=== PATIENT | female | born 2000 | race Caucasian/White ===

== ENCOUNTER 2022-03-16 16:23 | Emergency (ER) | payer OTHER, SELFPAY ==
--- NOTE | 2022-03-16 16:24 | ED.URI ---
HPI - URI/Sore Throat General Chief Complaint: Upper Respiratory Infection Stated Complaint: SORE THROAT/COUGH/CONGESTION Time Seen by Provider: 03/16/22 16:23 Source: patient Mode of arrival: ambulatory Limitations: no limitations History of Present Illness HPI Narrative: Dian is a 22-year-old female patient presenting to the clinic today with complaints of sore throat, cough, and congestion times x 1 week She reports symptoms started with with runny nose and mucous in the back of her throat. Sore throat started 3-4 days ago. She denies any fever and has a non productive cough. MD elicited complaint: sore throat and nasal congestion Related Data Allergies Allergy/AdvReac Type Severity Reaction Status Date / Time No Known Allergies Allergy Verified 03/16/22 16:36 Review of Systems Review of Systems: Pertinent positives per HPI. Patient denies any fever, chills, rash, headache, visual changes, dizziness,shortness of breath, chest pain, palpitations, nausea, vomiting, diarrhea, constipation, abdominal pain, or any urinary issues. PMF Comments At the time of my signature, I reviewed and agree with the nursing past medical, surgical, social, and family history. There is no relevant family history pertinent to the patient complaint. Exam Narrative: General: Well-developed, obese, in no apparent distress Head: Normocephalic, atraumatic Eyes: Pupils equally round and reactive to light bilaterally, EOM intact, sclera and conjunctive clear, no discharge, lids normal Ears: TMs intact and clear, ear canals clear, no drainage, grossly hearing normal. Nose: Nares patent, clear nasal discharge, no inflammation, no sinus tenderness. Mouth: Oral pharynx without lesions or masses, good dentition, MMM. Oropharynx red with bilateral tonsil enlargement with yellow exudate. Neck: Supple, trachea midline, positive enlargement of anterior cervical nodes, no thyroid masses or goiter palpable. Cardio: Regular rate and rhythm, s1 and s2 normal, no murmur appreciated. Resp: Clear to auscultation bilaterally, no rhonchi, rales, wheezing or rubs Course Course Emergency Course: Portions of this record may have been created with voice recognition software. Level of Care: Express Care Visit Vital Signs Vital signs: Vital signs reviewed MDM - URI/Sore Throat MDM Narrative Medical decision making narrative: At the time of visit patient was resting comfortably on the exam table. Strep screen was obtained and was positive in the clinic today. Amoxicillin and viscous lidocaine was sent to the pharmacy. Work note was given. Supportive measures were discussed with the patient she voiced understanding of discharge instructions and agrees to treatment plan. Differential Diagnosis Differential diagnosis: Likely upper respiratory infection, sinusitis, viral infection, influenza, pharyngitis and other (Covid) Discharge Plan Discharge Clinical Impression: Strep pharyngitis Patient Disposition: Home, Self-Care Condition: Stable Instructions: Antibiotic Form, Strep Throat (ED) Additional Instructions: Take prescription medications only as prescribed- amoxicillin as prescribed. Change toothbrush in 24 hours after the initiation of antibiotics Increase fluids and stay well hydrated Tylenol/motrin for pain/fever Flonase and OTC antihistamines as directed Vicks vapor rub to open sinuses Sinus rinses for congestion Cepacol spray, cough drops, throat lozenges, warm tea with honey/lemon, gargle salt water to soothe throat BRAT diet for diarrhea Clear liquids x 24 hours then advance as tolerated for nausea/vomiting May return to the clinic if symptoms worsen Go to the ED if you develop a worsening in your condition- high fever not controlled by Tylenol or Motrin, dehydration, weakness, lethargy, shortness of breath, or chest pain. Follow up with your PCP in 3-5 days if symptoms persist. Prescriptions: New amoxi
[2022-03-16 16:33] VITALS: BP 126/81; PULSE 126; RESP 16; TEMP 37.3; O2SAT 97
== END 2022-03-16 17:01 | disposition home or self-care (01) ==
PROVIDERS: Emergency Provider Nurse Practitioner Family
DX: J02.0 Streptococcal pharyngitis (principal)
CPT/HCPCS: 87880; 99213; G0463

== ENCOUNTER 2022-03-26 11:51 | Emergency (ER) | payer OTHER, SELFPAY ==
[2022-03-26 12:40] VITALS: BP 130/65; PULSE 107; RESP 18; TEMP 37.1; O2SAT 100
--- NOTE | 2022-03-26 13:29 | ED.GENADULT ---
HPI - General Adult General Chief complaint: Skin/Abscess/Foreign Body Stated complaint: rash History of Present Illness HPI narrative: Patient is a 22-year-old female who presents to the [facility] via POV accompanied by father for evaluation of a generalized rash that began yesterday. She also reports lip and facial swelling. Rash is erythematous and pruritic. Of note, patient was diagnosed with strep throat and treated with amoxicillin. She denies any history of penicillin allergy. She continues to report throat pain and swelling Related Data Allergies Allergy/AdvReac Type Severity Reaction Status Date / Time Penicillins Allergy Rash Verified 03/26/22 14:00 Review of Systems Review of Systems: Denies recent/new changes in soaps, perfumes, lotions, detergents, and shampoos. Denies working with chemicals. Denies new or changes in medications/foods. Pertinent negatives fever, chills, sweats, change in appetite, malaise, poor p.o. intake, recent weight loss, change in appetite, myalgias, lymphadenopathy, LOC, dizziness, burning sensation, petechiae, blistering,, streaking, warmth, lesions, easy bruising, tongue/throat swelling, abdominal pain, nausea, vomiting, numbness, tingling, loss of sensation, cough, wheezing, chest pain, and heart palpitations/murmurs. PMFSH Comments Spinal stenosis, radiculopathy/sciatica,cauda equina syndrome, sacroiliac pathology, fracture, strain Exam Narrative: GENERAL: Well-appearing, well-nourished, and in no acute distress. Appears uncomfortable, persistently scratching bilat arms and legs. HEAD: Normocephalic, atraumatic. Mild generalized facial and lip swelling is appreciated. EYES: PERRLA and EOMI. No evidence of erythema, swelling, or drainage. ENT: Nares clear, no rhinorrhea or epistaxis.Mucous membranes moist and pink. Uvula is midline without erythema and swelling. Mild swelling and exudate appreciated to bilat tonsils otherwise normal. Breath odor and voice normal. NECK: Supple. No Lymphadenopathy or nuchal rigidity appreciated. CHEST: Bilateral lung irving are clear to auscultation. No respiratory distress. No evidence of cough or pleuritic cp upon examination. HEART: Tachy with a rate of 107. Regular rhythm. No murmur, gallop, or rub heard. EXTREMITIES: Normal range of motion. No edema. SKIN: Moderate generalized maculopapular rash appreciated. Rash is consistent with drug rash. Skin is warm and dry. NEURO: No focal deficits. Alert and oriented x3. SPECIAL OBSERVATIONS: Smiling. Laughing. Course Course Level of Care: Express Care Visit Vital Signs Vital signs: Vital Signs Temperature 98.8 F 03/26/22 12:40 Pulse Rate 107 H 03/26/22 12:40 Respiratory Rate 18 03/26/22 12:40 Blood Pressure 130/65 03/26/22 12:40 Pulse Oximetry 100 03/26/22 12:40 Oxygen Delivery Room Air 03/26/22 12:40 Temperature 98.8 F 03/26/22 12:40 Pulse Rate 107 H 03/26/22 12:40 Respiratory Rate 18 03/26/22 12:40 Blood Pressure 130/65 03/26/22 12:40 Pulse Oximetry 100 03/26/22 12:40 Oxygen Delivery Room Air 03/26/22 12:40 Medical Decision Making Differential Diagnosis Differential Diagnosis: Contact/allergic dermatitis, atopic dermatitis, psoriasis, cellulitis, tinea infection, parasite infection, shingles, drug rash Vital Signs Vital Signs: Vital Signs Temperature 98.8 F 03/26/22 12:40 Pulse Rate 107 H 03/26/22 12:40 Respiratory Rate 18 03/26/22 12:40 Blood Pressure 130/65 03/26/22 12:40 Pulse Oximetry 100 03/26/22 12:40 Oxygen Delivery Room Air 03/26/22 12:40 Temperature 98.8 F 03/26/22 12:40 Pulse Rate 107 H 03/26/22 12:40 Respiratory Rate 18 03/26/22 12:40 Blood Pressure 130/65 03/26/22 12:40 Pulse Oximetry 100 03/26/22 12:40 Oxygen Delivery Room Air 03/26/22 12:40 Reviewed Critical Care Time Critical Care Time Critical Care Time: No Discharge Plan Discharge Clinical Impression: Carmen
[2022-03-26] MEDS: diphenhydrAMINE HCl CAP 25 MG CAPSULE 50 MG PO (13:53)
[2022-03-26] MEDS: FAMOTIDINE 20 MG TABLET PO (13:54)
[2022-03-26] MEDS: methylPREDNISolone SOD SUCC 125 MG VIAL IM (13:54)
== END 2022-03-26 14:15 | disposition home or self-care (01) ==
PROVIDERS: Emergency Provider Nurse Practitioner Family
DX: L27.0 Generalized skin eruption due to drugs and medicaments taken internally (principal); T36.0X5A Adverse effect of penicillins, initial encounter; M48.00 Spinal stenosis, site unspecified; G83.4 Cauda equina syndrome
CPT/HCPCS: 96372; 99213; A9270; G0463; J2930

== ENCOUNTER 2023-06-16 12:02 | Emergency (ER) | payer OTHER, SELFPAY ==
--- NOTE | 2023-06-16 12:09 | ED.URI ---
HPI - URI/Sore Throat General Chief Complaint: Upper Respiratory Infection Stated Complaint: Sore Throat Time Seen by Provider: 06/16/23 12:15 Source: patient, RN notes reviewed and old records reviewed Mode of arrival: ambulatory Limitations: no limitations History of Present Illness HPI Narrative: 23-year-old female presents to the [facility] with complaints of a sore throat that started 2 days ago. Has not taken anything for symptoms. Denies fevers, denies nasal congestion. Repeat does report fatigue Related Data Home Medications Medication Instructions Recorded Confirmed No Home Medications 06/16/23 06/16/23 Allergies Allergy/AdvReac Type Severity Reaction Status Date / Time Penicillins Allergy Rash Verified 06/16/23 12:23 Review of Systems Review of Systems: All systems reviewed & are unremarkable except as noted in HPI and below Constitutional: Constitutional: Reports no additional constitutional complaints Eyes: Eyes: Reports no additional eye complaints ENT: Reports as per HPI and Reports sore throat Cardiovascular: Cardiovascular: Reports no additional cardiovascular complaints, Denies chest pain and Denies dyspnea Respiratory: Respiratory: Reports no additional respiratory complaints, Denies chest congestion, Denies cough and Denies dyspnea Gastrointestinal: Gastrointestinal: Reports no additional gastrointestinal complaints, Denies abdominal pain, Denies nausea and Denies vomiting Musculoskeletal: Musculoskeletal: Reports no additional musculoskeletal complaints Integumentary/Breasts: Skin/Breast: Reports system reviewed and no additional complaints, except as docu Neurologic: Reports system reviewed and no additional complaints, except as documented Psychiatric: Psychiatric: Reports no additional psychiatric complaints Allergic/Immunologic: Allergic/Immunologic: Reports no additional allergic/immunologic complaints [facility] Past Medical History Medical History Patient denies medical problems Comments At the time of my signature, I reviewed and agree with the nursing past medical, surgical, social, and family history. There is no relevant family history pertinent to the patient complaint. Exam Const: General: cooperative, healthy appearing, comfortable, no acute distress, well developed, alert and well nourished Nutritional Appearance: well nourished and obese Orientation/consciousness: patient oriented x3 Limitations: no limitations HENMT: Head: normal to inspection Ears: hearing grossly normal bilaterally, external ears normal, TM's normal bilaterally, EAC's normal, mastoids normal and no periauricular adenopathy Face/Nose/Sinus: Normal external nose present, Normal nares present, Normal nasal mucous membranes and turbinates present, normal facial exam and face symmetric Face and sinus: normal facial exam and face symmetric Mouth: Yes Normal oral and palatal mucosa present, Yes lip normal and Yes moist mucous membranes Throat: posterior oropharynx normal, tonsils normal, uvula midline and no uvular edema Eyes: General: appearance normal, both eyes and all related structures Alignment and Position: alignment normal Periorbital: periorbital findings normal Pupils: Equal, round and reactive pupils present EOM: EOMs intact bilaterally Neck: Neck: normal visual inspection, full ROM, no lymphadenopathy and no meningeal signs Chest: Chest palpation & inspection: normal inspection of the chest Resp: Effort & Inspection: normal respiratory effort and able to speak in complete sentences Auscultation: clear to auscultation bilaterally, no crackles, no rales, no rhonchi and no wheezes Cardio: Rate: regular rate Rhythm: regular rhythm Back/Spine/Pelvis: Cervical Spine: cervical ROM normal Skin: General skin exam: normal color and no rashes or lesions noted Lesions: no lesions Rashes: no rashes Wounds: no wounds Neuro: General: patie
[2023-06-16 12:16] VITALS: BP 99/68; PULSE 115; RESP 16; TEMP 36.6; O2SAT 98
== END 2023-06-16 12:43 | disposition home or self-care (01) ==
PROVIDERS: Emergency Provider Nurse Practitioner
DX: J02.9 Acute pharyngitis, unspecified (principal)
CPT/HCPCS: 87081; 87880; 99213; G0463